=== PATIENT | female | born 1955 ===

== ENCOUNTER 2020-04-10 10:22 | Emergency (ER) | payer SELFPAY | END 2020-04-10 10:23 | disposition left against medical advice (07) | LOC: ED 10:22 | DX: Z53.21 Procedure and treatment not carried out due to patient leaving prior to being seen by health care provider (principal) ==

== ENCOUNTER 2021-08-05 17:16 | Emergency (ER) | payer SELFPAY ==
[2021-08-05 17:17] VITALS: BP 176/96
== END 2021-08-05 21:23 ==
LOC: ED 17:16
DX: Z04.1 Encounter for examination and observation following transport accident (principal); Z53.21 Procedure and treatment not carried out due to patient leaving prior to being seen by health care provider; V89.2XXA Person injured in unspecified motor-vehicle accident, traffic, initial encounter; Y93.89 Activity, other specified; Y92.89 Other specified places as the place of occurrence of the external cause; Y99.8 Other external cause status